=== PATIENT | female | born 1975 | race Two or more races ===

== ENCOUNTER 2018-05-21 16:24 | Inpatient (IN) | payer MEDICAID, OTHER ==
[~2018-05-21] VITALS: Ht 170.2 cm; Wt 101.2 kg
[2018-05-21] MEDS ORDERED: SODIUM CHLORIDE 0.9% 1,000 ML IV ONE (21:07)
[2018-05-21] MEDS ORDERED: ONDANSETRON HCL 4MG/2ML INJ IV STA (21:07)
[2018-05-21 21:27] LABS: CLARITY URINE CLOUDY (CLEAR); COLOR URINE YELLOW (YELLOW); KETONES URINE 3+ (NEGATIVE); LEUKOCYTE ESTERASE URINE 1+ (NEGATIVE); NITRITE URINE NEGATIVE (NEGATIVE); OCCULT BLOOD URINE NEGATIVE (NEGATIVE); PROTEIN URINE NEGATIVE (NEGATIVE); SPECIFIC GRAVITY URINE 1.027 (1.005-1.030)
[2018-05-21 21:49] LABS: BASOPHILS % 0.3 % (0.0-2.0); HEMATOCRIT. 36.6 % (36.0-48.0); HEMOGLOBIN. 11.9 g/dL (12.0-16.0); LYMPHOCYTES % 11.4 % (20.0-50.0); MEAN CORPUSCULAR HEMOGLOBIN 28.6 pg (28.0-32.0); MEAN CORPUSCULAR VOLUME 87.9 fL (81.0-99.0); MEAN PLATELET VOLUME 8.2 fl (7.4-10.4); MONOCYTES % 10.9 % (2.0-8.0); NEUTROPHILS % 76.4 % (40.0-76.0); PLATELET 244 x1000/uL (130-400); RED BLOOD CELL COUNT 4.17 mill/uL (4.2-5.4); RED CELL DISTRIBUTION WIDTH 14.8 % (11.6-14.6)
[2018-05-21 21:52] LABS: HCG SCREEN NEGATIVE
[2018-05-21 21:54] LABS: CHLORIDE 105 mEq/L (98-107)
[2018-05-21 21:55] LABS: PROTHROMBIN TIME 10.2 sec (9.1-11.1)
[2018-05-21] MEDS ORDERED: POTASSIUM CHLORIDE 20MEQ TABLET SR PO ONE (22:15)
[2018-05-21] MEDS ORDERED: ASPIRIN 325MG EC TABLET PO ONE (22:30)
[2018-05-21] MEDS ORDERED: CEFTRIAXONE 1 G PREMIX 50 ML IV ONE (22:30)
[2018-05-22] MEDS ORDERED: ACETAMINOPHEN 325MG TABLET PO PRN
[2018-05-22] MEDS ORDERED: CLONIDINE 0.1MG TABLET PO PRN
[2018-05-22] MEDS ORDERED: MAGNESIUM/ALUMINUM HYDROXIDE/SIMETHICONE 30ML UDC PO PRN
[2018-05-22] MEDS ORDERED: HYDROMORPHONE HCL/PF 2MG/ML CPJ IV PRN
[2018-05-22] MEDS ORDERED: GUAIFENESIN 200MG/10ML SUGAR FREE UDC PO PRN
[2018-05-22] MEDS ORDERED: HYDROCODONE/ACETAMINOPHEN 5/325MG TABLET PO PRN (01:52)
[2018-05-22] MEDS ORDERED: ONDANSETRON HCL 4MG/2ML INJ IV PRN (01:52)
[2018-05-22 06:38] LABS: CHLORIDE 109 mEq/L (98-107)
[2018-05-22 06:39] LABS: HEMATOCRIT. 34.5 % (36.0-48.0); HEMOGLOBIN. 11.2 g/dL (12.0-16.0); MEAN CORPUSCULAR HEMOGLOBIN 28.5 pg (28.0-32.0); MEAN CORPUSCULAR VOLUME 87.6 fL (81.0-99.0); MEAN PLATELET VOLUME 8.2 fl (7.4-10.4); PLATELET 229 x1000/uL (130-400); RED BLOOD CELL COUNT 3.94 mill/uL (4.2-5.4); RED CELL DISTRIBUTION WIDTH 14.8 % (11.6-14.6)
[2018-05-22] MEDS ORDERED: LEVOFLOXACIN 500MG PREMIX 100 ML IV NR (07:39)
[2018-05-22] MEDS: DEXT 5%/0.45% NACL KCL 10MEQ/L 1,000 ML IV SCH ×2 (08:00→22:05)
[2018-05-22 08:46] LABS: PLATELET ESTIMATE NORMAL
[2018-05-22 18:00] VITALS: BP 133/73
[2018-05-22 20:00] VITALS: BP 121/51
[2018-05-22 20:36] VITALS: BP 102/69
[2018-05-23] VITALS (7 sets, daily range): BP systolic 100–142; BP diastolic 53–93
[2018-05-23] MEDS ORDERED: LEVOFLOXACIN 500MG PREMIX 100 ML IV SCH (08:30)
[2018-05-23] MEDS: DEXT 5%/0.45% NACL KCL 10MEQ/L 1,000 ML IV SCH ×2 (08:34→20:50)
[2018-05-24] VITALS: BP 131/58
[2018-05-24] MEDS: DEXT 5%/0.45% NACL KCL 10MEQ/L 1,000 ML IV SCH (01:58)
[2018-05-24 04:00] VITALS: BP 119/58
[2018-05-24 08:00] VITALS: BP 120/62
[2018-05-24] MEDS ORDERED: LEVOFLOXACIN 500MG PREMIX 100 ML IV SCH (08:00)
[2018-05-24 15:26] VITALS: BP 128/62
== END 2018-05-24 16:00 | disposition home or self-care (01) | DRG 463 ==
LOC: ER 16:24 → 3WST 22:27 → EDBEDREQTM 22:30 → EDBEDREQ 22:30 → SUPCPDRO 23:52 → ENRESERV 05-22 15:20 → 7WST 05-23 10:23
PROVIDERS: ADMIT Hospitalist; ATTEND Hospitalist
DX: N39.0 Urinary tract infection, site not specified (principal); I24.9 Acute ischemic heart disease, unspecified; M41.9 Scoliosis, unspecified; R19.7 Diarrhea, unspecified; M54.30 Sciatica, unspecified side
CPT/HCPCS: 36415; 71045; 83605; 83880; 84484; 84703; 87493; 93005; 93970; 96365; 96375; 99285; J0696; J1956; J2405; J7030; J7050

== ENCOUNTER 2018-09-26 22:14 | Emergency (ER) | payer MEDICAID ==
[~2018-09-26] VITALS: Ht 165.1 cm; Wt 97.0 kg
[2018-09-26] MEDS ORDERED: ONDANSETRON HCL 4MG/2ML INJ IV ONE (23:15)
[2018-09-26 23:45] LABS: CHLORIDE 107 mEq/L (98-107)
[2018-09-26 23:48] LABS: HEMATOCRIT. 34.1 % (36.0-48.0); HEMOGLOBIN. 11.7 g/dL (12.0-16.0); MEAN CORPUSCULAR HEMOGLOBIN 29.7 pg (28.0-32.0); MEAN CORPUSCULAR VOLUME 86.8 fL (81.0-99.0); MEAN PLATELET VOLUME 7.9 fl (7.4-10.4); PLATELET 220 x1000/uL (130-400); RED BLOOD CELL COUNT 3.93 mill/uL (4.2-5.4)
[2018-09-27 00:53] LABS: PLATELET ESTIMATE NORMAL
[2018-09-27 02:08] LABS: CLARITY URINE CLOUDY (CLEAR); COLOR URINE YELLOW (YELLOW); KETONES URINE 2+ (NEGATIVE); LEUKOCYTE ESTERASE URINE TRACE (NEGATIVE); NITRITE URINE NEGATIVE (NEGATIVE); OCCULT BLOOD URINE NEGATIVE (NEGATIVE); PH URINE 5.5 (4.5-8.0); PROTEIN URINE NEGATIVE (NEGATIVE); SPECIFIC GRAVITY URINE 1.021 (1.005-1.030); UROBILINOGEN URINE 0.2 E.U./dL (0.2-1.0)
[2018-09-27 06:06] VITALS: BP 137/69
== END 2018-09-27 06:11 | disposition home or self-care (01) ==
LOC: ER 22:26 → CANBEDREQ 09-27 05:28 → ER 09-27 06:11
DX: R11.2 Nausea with vomiting, unspecified (principal); R19.7 Diarrhea, unspecified; G89.29 Other chronic pain; M54.9 Dorsalgia, unspecified
CPT/HCPCS: 36415; 71045; 80053; 81003; 83605; 84145; 85025; 87015; 87040; 87045; 87086; 87427; 87449; 87493; 89055; 96374; 99284; J2405